=== PATIENT | female | born 1985 | race African-American/Black ===

== ENCOUNTER 2019-09-13 23:02 | Emergency (ER) | payer SELFPAY ==
[2019-09-13 23:37] VITALS: BP 127/88; PULSE 89; RESP 18; TEMP 37; O2SAT 100; BMI 20.3
--- NOTE | 2019-09-14 00:08 | ED_ITS ---
HPI - Dental/Oral General: Chief complaint: Dental/Oral Stated complaint: dental pain Time Seen by Provider: 09/14/19 00:08 Source: patient Mode of arrival: ambulatory Limitations: no limitations History of Present Illness: HPI Narrative: Patient is a very nice 34-year-old female who presents to ED today with complaints of left-sided dental pain that began yesterday. Patient tells me she woke up with the left side of her face swollen. Patient tells me she does have a history of dental problems. She has not been running any fevers. She is not having any difficulty eating or drinking or swallowing. MD Complaint: tooth pain Teeth map: 1. severe decay Onset (ago): day(s) (yesterday) Duration: constant Severity: severe Relieving factors: nothing Exacerbating factors: nothing Context: history of dental caries Associated symptoms: Reports no associated symptoms; Denies ear or mastoid pain, fever(s) or painful swallowing Treatment prior to arrival: none Review of Systems Const: Denies: fever, chills, body aches, change in appetite, change in weight, fatigue or malaise Eyes: Denies: change in vision, blurry vision, photophobia, eye discomfort or eye discharge ENMT: Reports: dental pain; Denies: throat pain, enlarged tonsils, painful swallowing, swelling of lips/tongue, oral sores/lesions, ear pain, ear discharge, nasal discharge, nasal congestion, post nasal drip or facial/sinus pain Card: Denies: chest pain Resp: Denies: productive cough or non-productive cough GI: Denies: nausea or vomiting Musc: Denies: neck pain Skin/Breast: Denies: rash Neuro: Denies: headache All/Imm: Denies: facial swelling or seasonal allergies PFSH ED PFSH: Social History Smoking and tobacco status: never smoked Physical Exam Const: COMMON NORMALS: average body habitus, oriented x3, no limitations, healthy appearing, alert and well nourished GENERAL APPEARANCE: in distress (secondary to pain) HENMT: COMMON NORMALS: normocephalic, head/scalp atraumatic, hearing grossly normal bilaterally, external ears normal, EAC's normal, TM's normal bilaterally, external nose normal, nasal mucous membranes and turbinates normal, moist oral mucous membranes and oropharynx normal HEAD & SCALP: normocephalic and atraumatic NOSE: external nose normal and nasal mucous membranes and turbinates normal EXTERNAL EAR: Yes external ears normal EXTERNAL AUDITORY CANAL: EAC's normal TYMPANIC MEMBRANE: TM's normal bilaterally MOUTH: other (pt with severe decay to L lower molar; buccal mucosal swelling; no abscess) THROAT: posterior oropharynx normal, tonsils normal and uvula midline OTHER: several other dental caries present; no submandibular swelling noted; floor of mouth is soft Neck/C-Spine: COMMON NORMALS: full ROM and no lymphadenopathy Neuro: COMMON NORMALS: oriented x3 SENSORIUM/ORIENTATION: Yes alert Procedures Nerve Block Nerve Block 1: Time out performed: Yes Local Anesthetic: lidocaine 1%, bupivacaine 0.5% and with epi Amount of anesthesia used (mL): 3 Side: left Intraoral Nerve Block: inferior alveolar Procedure Successful: Yes Patient Tolerated Procedure: well Complications: none Course Vital Signs: Vital signs: Vital Signs Temperature 98.9 F 09/14/19 00:53 Pulse Rate 109 H 09/14/19 00:53 Respiratory Rate 16 09/14/19 00:53 Blood Pressure 110/75 09/14/19 00:53 Pulse Oximetry 98 09/14/19 00:53 MDM - Dental/Oral MDM Narrative: Medical decision making narrative: Patient completely pain-free after dental block. She was given IM antibiotics here and will be sent home on antibiotics with recommendations to follow-up with a dentist as soon as possible. Discharge Plan Discharge Patient Disposition: Home, Self-Care Clinical Impression: Dental caries, Toothache, Dental abscess Condition: Stable Prescriptions: New clindamycin HCl 300 mg capsule 300 mg PO Q6H 7 Days Qty: 28 RF: 0 tramadol 50 mg tablet 50 mg PO Q6H PRN (Reason: pain) Qty: 14 RF: 0 Discharge Orders: Discharge Order (Routine); Ordered 09/14/19 Ordered By: Shantelle Abbott Referrals: Gina Mcnamara APN [Family Provider] - Discharge Diet: GI Soft Discharge Activity: Increase activity as tolerated Patient Instructions: Mepivacaine (Injection), Lidocaine/Epinephrine ( Injection), Dental Abscess (ED), Dental Caries (ED), Toothache (ED) Activity Restrictions/Additional Instructions: Follow up with a dentist as soon as possible. Discharge Date/Time: 09/14/19 00:55 Coding Level of Care Code ED [employer] for [facility]
[2019-09-14] MEDS: ketorolac 60 mg/2 mL INJ IM (00:28)
[2019-09-14] MEDS: clindamycin 150 mg/mL SDV 6 mL 600 MG IM (00:32)
[2019-09-14 00:53] VITALS: BP 110/75; PULSE 109; RESP 16; TEMP 37.2; O2SAT 98
== END 2019-09-14 00:55 | disposition home or self-care (01) ==
LOC: ER 09-14 00:37
PROVIDERS: Emergency Provider Physician Assistant; Family Provider Nurse Practitioner
DX: K02.9 Dental caries, unspecified (principal); K04.7 Periapical abscess without sinus
CPT/HCPCS: 12345; 96372; 99281; 99283; J1885; J2001; J3490